=== PATIENT | female | born 1930 | race Caucasian/White ===

== ENCOUNTER 2019-02-19 01:22 | Emergency (ER) | payer MEDICARE, BC ==
[~2019-02-19] VITALS: Ht 162.6 cm; Wt 56.7 kg
--- NOTE | 2019-02-19 01:50 | NUR ---
TO BED 4 BIB DAUGHTER C/O HEADACHE WITH CONTUSION S/P SLIP AND FALL. DENIES KO. PT AAOX4 NO ACUTE DISTRESS NOTED, RESP EVEN AND UNLABORED. PUPILS PERRLA, PT ABLE TO MOVE ALL EXTREMITIES WELL WITH BILATERAL EQUAL CODE OFFICIAL. PENDING ER MD ORELLANA.
--- NOTE | 2019-02-19 02:03 | NUR ---
PT TRANSPORTED TO RADIOLOGY FOR CT HEAD.
--- NOTE | 2019-02-19 02:13 | NUR ---
PT BACK FROM RADIOLOGY. AWAITING RESULT
--- NOTE | 2019-02-19 03:12 | NUR ---
Patient discharged to home in stable condition. Written and verbal after care instructions given. Patient verbalizes understanding of instruction. ambulatory with a steady gait noted. pt aaox4 no acute distress noted, resp even and unlabored. pt daughter at bedside to take pt home.
[2019-02-19 03:13] VITALS: BP 162/79
== END 2019-02-19 03:14 | disposition home or self-care (01) ==
LOC: ER 01:26
DX: S09.8XXA Other specified injuries of head, initial encounter (principal); F03.90 Unspecified dementia, unspecified severity, without behavioral disturbance, psychotic disturbance, mood disturbance, and anxiety; I10 Essential (primary) hypertension; W01.0XXA Fall on same level from slipping, tripping and stumbling without subsequent striking against object, initial encounter; Y93.89 Activity, other specified; Y92.89 Other specified places as the place of occurrence of the external cause; Y99.8 Other external cause status
CPT/HCPCS: 70450-TC; 72125-TC